=== PATIENT | female | born 1980 | race Caucasian/White ===

== ENCOUNTER 2017-05-16 09:14 | Emergency (ER) | payer OTHER ==
[~2017-05-16] VITALS: Ht 160 cm; Wt 64.9 kg
[2017-05-16] MEDS ORDERED: 0.9 % SODIUM CHLORIDE 10 ML DISP.SYRIN. IV PRN (09:30)
[2017-05-16 09:43] LABS: BASO # 0.1 x10^3/uL (0.0-0.2); BASO % 1 % (0-3); EOS # 0.1 x10^3/uL (0.0-0.7); EOS % 2 % (0-3); HEMOGLOBIN 12.3 g/dL (12.0-15.5); LYMPH # 2.8 x10^3/uL (1.0-4.8); LYMPH % 41 % (24-48); MEAN CORPUSCULAR HEMOGLOBIN 30 pg (25-35); MEAN CORPUSCULAR HGB CONC 34 g/dL (31-37); MEAN CORPUSCULAR VOLUME 88 fL (79-100); MONO # 0.4 x10^3/uL (0.0-1.1); MONO % 6 % (0-9); NEUT # 3.3 x10^3uL (1.8-7.7); NEUT % 50 % (31-73); PLATELET COUNT 265 x10^3/uL (140-400); RED BLOOD COUNT 4.08 x10^6/uL (3.50-5.40); RED CELL DISTRIBUTION WIDTH 16.7 % (11.5-14.5); WHITE BLOOD COUNT 6.7 x10^3/uL (4.0-11.0)
[2017-05-16] MEDS ORDERED: ASPIRIN 81 MG TAB.CHEW PO ONE (10:00)
[2017-05-16] MEDS ORDERED: CONTRAST GIVEN MC PRN (10:00)
[2017-05-16] MEDS ORDERED: IOHEXOL 300 MG/ML 75 ML VIAL. IV ONE (10:00)
[2017-05-16 10:03] LABS: ALBUMIN 3.7 g/dL (3.4-5.0); ALBUMIN/GLOBULIN RATIO 0.9 (1.0-1.7); ALK PHOS 82 U/L (46-116); ALT (SGPT) 24 U/L (14-59); ANION GAP 9 (6-14); AST (SGOT) 21 U/L (15-37); BLOOD UREA NITROGEN 12 mg/dL (7-20); BUN/CREATININE RATIO 13 (6-20); CALCIUM 8.8 mg/dL (8.5-10.1); CARBON DIOXIDE 27 mmol/L (21-32); CHLORIDE 104 mmol/L (98-107); CREATINE KINASE 37 U/L (26-192); CREATININE 0.9 mg/dL (0.6-1.0); GFR 70.1; GLUCOSE 107 mg/dL (70-99); MAGNESIUM 1.7 mg/dL (1.8-2.4); POTASSIUM 3.5 mmol/L (3.5-5.1); SODIUM 140 mmol/L (136-145); TOTAL BILIRUBIN 0.6 mg/dL (0.2-1.0); TOTAL PROTEIN 7.8 g/dL (6.4-8.2)
[2017-05-16] MEDS ORDERED: ONDANSETRON PF 4 MG/2 ML VIAL. IV ONE (10:15)
--- NOTE | 2017-05-16 10:37 | RAD ---
Indication: Short of air for 2 days. Technique: Axial images and coronal and sagittal reformatted images are provided. Coronal maximum intensity projection reformatted images are provided. 75 mL of intravenous Omnipaque 300 was administered without complication. No comparison is available. One or more of the following individualized dose reduction techniques were utilized for this examination: 1. Automated exposure control 2. Adjustment of the mA and/or kV according to patient size 3. Use of iterative reconstruction technique Findings: The contrast bolus is satisfactory. There is no filling defect to suggest a pulmonary embolism. 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 Heart is not enlarged. There is no hilar or mediastinal adenopathy. There is thyromegaly. Central airways are patent. There is no pleural effusion. There is dependent atelectasis. There is no consolidation. There is no worrisome pulmonary nodule. There is minimal emphysema. Postsurgical changes are noted in the stomach. There are minimal degenerative changes in the spine. Impression: 1. Negative for pulmonary embolism. 2. No acute thoracic findings.
[2017-05-16 11:16] LABS: INFLUENZA A PATIENT NEGATIVE (NEGATIVE); INFLUENZA B PATIENT NEGATIVE (NEGATIVE)
[2017-05-16] MEDS ORDERED: HYDR-971 PO (11:27)
[2017-05-16] MEDS ORDERED: METH4TAB2 PO (11:27)
--- NOTE | 2017-05-16 11:27 | PHYS DOC ---
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 Patient state she was on Lovenox during hospitalization but did not have any more anticoagulation after her discharge from hospital. Patient complaining of intermittent episodes of shortness of breath for the last 3 days with mild activity that getting worse today. Patient complaining of nausea and palpitation and dizziness and near syncope with episodes of shortness of breath. Patient complaining of episodes of right sided chest pain since yesterday as a sharp pain with radiation to her right shoulder which shortness of breath and nausea and dizziness and palpitation that last for a few seconds to minutes and getting more constant today. Patient denies recent immobilization or lower extremity pain. States she had temperature of 100 yesterday and denies cough and congestion and sore throat and urinary symptom. Review of Systems Review of Systems Constitutional: Force fever and chills Eyes: Denies change in visual acuity, redness, or eye pain [] HENT: Denies nasal congestion or sore throat [] Respiratory: Force cough and shortness of breath] Cardiovascular: No additional information not addressed in HPI [] GI: Denies abdominal pain,vomiting, bloody stools or diarrhea and reports nausea [] : Denies dysuria or hematuria [] Musculoskeletal: Denies back pain or joint pain [] Integument: Denies rash or skin lesions [] Neurologic: Denies headache, focal weakness or sensory changes [] Endocrine: Denies polyuria or polydipsia [] All other systems were reviewed and found to be within normal limits, except as documented in this note. Current Medications Current Medications Current Medications Medications (Trade) Dose Ordered Sig/Ronni Start Time Stop Time Status Last Admin Dose Admin Aspirin (Children'S Aspirin) 324 mg 1X ONCE 05/16/17 10:00 05/16/17 10:01 DC 05/16/17 10:00 324 MG Fentanyl Citrate (Fentanyl 2ml Vial) 50 mcg 1X ONCE 05/16/17 10:15 05/16/17 10:16 DC 05/16/17 10:15 50 MCG Info (Do NOT chart on this entry -- for MONITORING) 1 each PRN DAILY PRN 05/16/17 10:00 05/18/17 09:59 Iohexol (Omnipaque 300 Mg/ml) 75 ml 1X ONCE 05/16/17 10:00 05/16/17 10:01 DC 05/16/17 09:57 75 ML Ondansetron HCl (Zofran) 4 mg 1X ONCE 05/16/17 10:15 05/16/17 10:16 DC 05/16/17 10:15 4 MG Sodium Chloride (Normal Saline Flush) 10 ml QSHIFT PRN 05/16/17 09:30 Allergies Allergies Allergies Coded Allergies Type Severity Reaction Last Updated Verified No Known Drug Allergies 05/16/17 No Physical Exam Physical Exam Constitutional: Well developed, well nourished, mild distress, non-toxic appearance, anxious. [] HENT: Normocephalic, atraumatic, bilateral external ears normal, oropharynx moist, no oral exudates, nose normal. [] Eyes: PERRLA, EOMI, conjunctiva normal, no discharge. [] Neck: Normal range of motion, no tenderness, supple, no stridor. [] Cardiovascular: Tachycardia, no murmur [] Lungs & Thorax: Bilateral breath sounds clear to auscultation, right anterior chest wall reproducible pain[] Abdomen: Bowel sounds normal, soft, no tenderness, no masses, no pulsatile masses. [] Skin: Warm, dry, no erythema, no rash. [] Back: No tenderness, no CVA tenderness. [] Extremities: No tenderness, no cyanosis, no clubbing, ROM intact, no edema. [] Neurologic: Alert and oriented X 3, normal motor function, normal sensory function, no focal deficits noted. [] Psychologic: Affect normal, judgement normal, mood normal. [] Current Patient Data Vital Signs Vital Signs Date Time Temp Pulse Resp B/P (MAP) Pulse Ox O2 Delivery O2 Flow Rate FiO2 05/16/17 10:15 16 100 05/16/17 10:00 76 133/91 (105) Room Air 05/16/17 09:20 98.7 Lab Results Laboratory Tests Test 05/16/17 09:24 05/16/17 09:38 Influenza Type A (Rapid) Negative (NEGATIVE) Influenza Type B (Rapid) Negative (NEGATIVE) White Blood Count 6.7 x10^3/uL (4.0-11.0) Red Blood Count 4.08 x10^6/uL (3.50-5.40) Hemoglobin 12.3 g/dL (12.0-15.5) Hematocrit 36.0 % (36.0-47.0) Mean Corpuscular Volume 88 fL (79-100) Mean Corpuscular Hemoglobin 30 pg (25-35) Mean Corpuscular Hemoglobin Concent 34 g/dL (31-37) Red Cell Distribution Width 16.7 % (11.5-14.5) H Platelet Count 265 x10^3/uL (140-400) Neutrophils (%) (Auto) 50 % (31-73) Lymphocytes (%) (Auto) 41 % (24-48) Monocytes (%) (Auto) 6 % (0-9) Eosinophils (%) (Auto) 2 % (0-3) Basophils (%) (Auto) 1 % (0-3) Neutrophils # (Auto) 3.3 x10^3uL (1.8-7.7) Lymphocytes # (Auto) 2.8 x10^3/uL (1.0-4.8) Monocytes # (Auto) 0.4 x10^3/uL (0.0-1.1) Eosinophils # (Auto) 0.1 x10^3/uL (0.0-0.7) Basophils # (Auto) 0.1 x10^3/uL (0.0-0.2) Prothrombin Time 11.1 SEC (9.4-11.4) Prothrombin Time INR 1.1 (0.9-1.1) PTT 25 SEC (23-33) Sodium Level 140 mmol/L (136-145) Potassium Level 3.5 mmol/L (3.5-5.1) Chloride Level 104 mmol/L (98-107) Carbon Dioxide Level 27 mmol/L (21-32) Anion Gap 9 (6-14) Blood Urea Nitrogen 12 mg/dL (7-20) Creatinine 0.9 mg/dL (0.6-1.0) Estimated GFR (Cockcroft-Gault) 70.1 BUN/Creatinine Ratio 13 (6-20) Glucose Level 107 mg/dL (70-99) H Calcium Level 8.8 mg/dL (8.5-10.1) Magnesium Level 1.7 mg/dL (1.8-2.4) L Total Bilirubin 0.6 mg/dL (0.2-1.0) Aspartate Amino Transferase (AST) 21 U/L (15-37) Alanine Aminotransferase (ALT) 24 U/L (14-59) Alkaline Phosphatase 82 U/L (46-116) Creatine Kinase 37 U/L (26-192) Creatine Kinase MB (Mass) < 0.5 ng/mL (0.0-3.6) Creatine Kinase MB Relative Index 1.4 % (0-4) Troponin I Quantitative < 0.017 ng/mL (0-0.055) CK-Dco-N-Type Natriuretic Peptide 19 pg/mL (0-124) Total Protein 7.8 g/dL (6.4-8.2) Albumin 3.7 g/dL (3.4-5.0) Albumin/Globulin Ratio 0.9 (1.0-1.7) L EKG EKG [EKG interpreted by me. EKG at 0 923 showed normal sinus rhythm at rate of 94, no acute ST and T wave abnormality, poor R-wave progress in inferior leads Radiology/Procedures Radiology/Procedures [] Course & Med Decision Making Course & Med Decision Making Pertinent Labs and Imaging studies reviewed. (See chart for details) Evaluation of patient in ER showed 37-year-old female patient with history of pulmonary embolism presented to ER with complaining of shortness of breath and chest pain for the last 2 days. Patient was anxious and had tachycardia at arrival to ER with normal O2 sat. EKG, labs, CT chest for PE was unremarkable and flu test was negative. Patient treated with IV fluid and fentanyl and felt better. Plan discharge patient home with diagnosis of pleurisy and anxiety. Dragon Disclaimer Dragon Disclaimer This electronic medical record was generated, in whole or in part, using a voice recognition dictation system. Departure Departure: Impression: Primary Impression: Pleurisy Additional Impressions: Dyspnea Right-sided chest pain Anxiety Disposition: HOME, SELF-CARE (At 1124) Condition: IMPROVED Referrals: JER HEATH MD (PCP) Patient Instructions: Pleurisy Additional Instructions: Follow-up with your primary care physician in 3-5 days Return to ER if not getting better Scripts Methylprednisolone (MEDROL) 4 Mg Tab.ds.pk 1 PKG PO UD, #1 PKG Prov: NEERAJ HUNTER MD 05/16/17 Hydrocodone Bit/Acetaminophen (NORCO 5-325 TABLET) 1 Each Tablet 1 TAB PO PRN Q6HRS Y for PAIN, #10 TAB 0 Refills Prov: NEERAJ HUNTER MD 05/16/17 Critical Care Time Critical care time was [80] minutes exclusive of procedures. Problem Qualifiers NEERAJ HUNTER MD May 16, 2017 11:27
[2017-05-16 11:30] VITALS: BP 107/93
--- NOTE | 2017-05-16 17:54 | EKG ---
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
== END 2017-05-16 11:35 | disposition home or self-care (01) ==
LOC: ER 09:14
DX: R09.1 Pleurisy (principal); F41.9 Anxiety disorder, unspecified; Z86.718 Personal history of other venous thrombosis and embolism; Z86.711 Personal history of pulmonary embolism; Q79.6 Ehlers-Danlos syndromes
CPT/HCPCS: 36415; 71275; 80053; 82553; 83735; 83880; 84484; 85025; 85610; 85730; 87804; 93005; 96374; 96375; 99291; 99292; J2405; J3010; Q9967

== ENCOUNTER → 2017-06-17 | Outpatient (CLI) | payer OTHER ==
[~2017-06-17] MED LIST: BUPIVACAINE MPF 0.25% 10 ML VIAL. ONE; HYDR-971 PO; LIDOCAINE 1% PF 30 ML VIAL. ONE; METH4TAB2 PO
== END | disposition home or self-care (01) ==
LOC: SURG 09:06
PROVIDERS: ATTEND Anesthesiology Pain Medicine
DX: M79.1 Myalgia (principal); M19.90 Unspecified osteoarthritis, unspecified site; D64.89 Other specified anemias; G43.909 Migraine, unspecified, not intractable, without status migrainosus; F41.8 Other specified anxiety disorders; Z86.718 Personal history of other venous thrombosis and embolism; Z86.711 Personal history of pulmonary embolism; Z98.84 Bariatric surgery status
CPT/HCPCS: 20553; 99213; J2001; J3490

== ENCOUNTER → 2017-07-14 | Outpatient (CLI) | payer OTHER | END | disposition home or self-care (01) | LOC: SURG 10:51 | PROVIDERS: ATTEND Anesthesiology Pain Medicine | DX: M79.1 Myalgia (principal) | CPT/HCPCS: 20553; J2001; J3490 ==

== ENCOUNTER → 2018-01-18 | Outpatient (CLI) | payer OTHER ==
[~2018-01-18] MED LIST changes: -BUPIVACAINE MPF 0.25% 10 ML VIAL. ONE; -LIDOCAINE 1% PF 30 ML VIAL. ONE
[2018-01-18 14:43] LABS: BARBITURATES NEG (NEG); BENZODIAZEPINES NEG (NEG); CANNABINOIDS NEG (NEG); COCAINE NEG (NEG); METHADONE NEG (NEG); OPIATES NEG (NEG); PHENCYCLIDINE NEG (NEG)
[2018-01-18 14:46] LABS: AMPHETAMINE/METHAMPHETAMINE NEG (NEG)
== END | disposition home or self-care (01) ==
LOC: SURG 14:04
PROVIDERS: ATTEND Anesthesiology
DX: M54.5 Low back pain (principal); G89.29 Other chronic pain; Z98.890 Other specified postprocedural states
CPT/HCPCS: 36415; 80307; 99213; G0479

== ENCOUNTER 2018-12-26 14:29 | Emergency (ER) | payer OTHER ==
[~2018-12-26] VITALS: Ht 160 cm; Wt 62.6 kg
[~2018-12-26 14:29] MED LIST changes: +HYDR-3165 PO; -HYDR-971 PO
--- NOTE | 2018-12-26 14:50 | PHYS DOC ---
Past History Past Medical History: DVT, Other Additional Past Medical Histor: pulmonary embolism Past Surgical History: Appendectomy, Cholecystectomy, Gastric Bypass Alcohol Use: None Drug Use: None Adult General Chief Complaint Chief Complaint: CHEST PAIN HPI HPI Patient is a 38 yo f hx kevon newman, pulmonary embolism back in 2011 that was apparently unprovoked according to her report also Alessio's thyroiditis who is brought in by emesis with chief complaint of chest pain and shortness of breath since last night. Eating slowly worse left side sharp worse with deep breathing radiates occasionally down the right arm associated with significant shortness of breath that "comes and goes at random". She says it feels identical to when she had a pulmonary embolism about 7 years ago. The pain does not radiate to the back it is not ripping or tearing Review of Systems Review of Systems Constitutional: Denies fever or chills [] Eyes: Denies change in visual acuity, redness, or eye pain [] HENT: Denies nasal congestion or sore throat [] Respirator Musculoskeletal: Denies back pain or joint pain [] Integument: Denies rash or skin lesions [] Neurologic: Denies headache, focal weakness or sensory changes [] Endocrine: Denies polyuria or polydipsia [] All other systems were reviewed and found to be within normal limits, except as documented in this note. Allergies Allergies Allergies Coded Allergies Type Severity Reaction Last Updated Verified No Known Drug Allergies 05/16/17 No Physical Exam Physical Exam Constitutional: Well developed, well nourished, no acute distress, non-toxic appearance. [] HENT: Normocephalic, atraumatic, bilateral external ears normal, oropharynx moist, no oral exudates, nose normal. [] Eyes: PERRLA, EOMI, conjunctiva normal, no discharge. [] Neck: Normal range of motion, no tenderness, supple, no stridor. [] Cardiovascular:Heart rate regular rhythm, no murmur [] Lungs & Thorax: Bilateral breath sounds clear to auscultation [] Abdomen: Bowel sounds normal, soft, no tenderness, no masses, no pulsatile masses. [] Skin: Warm, dry, no erythema, no rash. [] Back: No tenderness, no CVA tenderness. [] Extremities: No tenderness, no cyanosis, no clubbing, ROM intact, no edema. [] Neurologic: Alert and oriented X 3, normal motor function, normal sensory function, no focal deficits noted. [] Psychologic: Affect normal, judgement normal, mood normal. [] EKG EKG []Normal sinus rhythm rate of 99 there are very subtle ST segment depression less than 1 mm in the inferior leads no STEMI interpreted by me time of encounter LOOKS SAME 05/16/17 Radiology/Procedures Radiology/Procedures [] Impressions: IMPRESSION: 1. No pulmonary embolus identified within the main, lobar or segmental pulmonary arteries. 2. A 3 mm nodule in the right upper lobe series 5 image 26. In a low-risk patient no further follow-up imaging is recommended. In a high-risk patient and optional one-year follow-up CT can BE performed. Exposure: One or more of the following in the visualized dose reduction techniques were utilized for this examination: 1. Automated exposure control 2. Adjustment of the MA and/or KV according to patient size 3. Use of iterative of reconstructive technique Electronically signed by: Grace Young MD (12/26/2018 4:28 PM) [facility] Course & Med Decision Making Course & Med Decision Making Pertinent Labs and Imaging studies reviewed. (See chart for details) CP SOB PE STUDY NEG TROP/EKG UNREMARKABLE. FELT BETTER IN ER AFTER FENTANYL ON RE-EXAM HAS BEEN COUGHING HAS A REACTIVE COUGH ON EXAM TRY ALBUTEROL PT FEELS BETTER AND IS REASSURED. NOTED NODULE, ADVISED SMOKING CESSATION FOLLOW UP ONE YEAR TRIAGE NOTE BELOW [] History of Present Illness * Pt came into the ER by EMS. EMS stated we got called for SOB. EMS stated the pt dose have an increaded rate of breathing. EMS stated the pt is stable. PT stated I have had a history of PE in 2011 and how I am digna feels like that now. Pt stated I am very SOB and my left chest feels funny. Pt stated I have a lot of discomfort in my chest more so upper left chest. Distress * Mild Temperature (Fahrenheit): * 98.3 degrees F (97.6-99.5) Patient Temperature * 98.3 degrees F (97.5-99.5) Temperature Source * Oral Blood Pressure Systolic * 100 mm Hg (100-140) Blood Pressure Diastolic * 58 mm Hg (60-100) L Blood Pressure Mean * 72 mm Hg Blood Pressure Location * Left Arm Blood Pressure Source * Automatic Cuff Pulse Rate * 100 beats per minute (60-90) H Pulse Assessment Method * NIBP Respiratory Rate * 20 breaths per minute (12-24) Oxygen Delivery Method * Room Air Bedside Pulse Oximetry * 100 % Treatment Prior to Arrival * Yes - EMS Complaint of Pain * Yes Pain Scale Type Dragon Disclaimer Dragon Disclaimer This electronic medical record was generated, in whole or in part, using a voice recognition dictation system. Departure Departure: Impression: Primary Impression: Bronchitis Disposition: 01 HOME, SELF-CARE Condition: STABLE Referrals: JER HEATH MD (PCP) Scripts Albuterol Sulfate (PROAIR HFA INHALER) 8.5 Gm Hfa.aer.ad 1 PUFF INH PRN Q6HRS PRN for SHORTNESS OF BREATH, #1 INHALER 0 Refills Prov: MARIAN MATOS MD 12/26/18 MARIAN MATOS MD Dec 26, 2018 14:49
[2018-12-26 15:03] LABS: BASO # 0.1 x10^3/uL (0.0-0.2); BASO % 1 % (0-3); EOS # 0.1 x10^3/uL (0.0-0.7); EOS % 2 % (0-3); HEMATOCRIT 40.2 % (36.0-47.0); HEMOGLOBIN 13.7 g/dL (12.0-15.5); LYMPH # 2.9 x10^3/uL (1.0-4.8); LYMPH % 31 % (24-48); MEAN CORPUSCULAR HEMOGLOBIN 32 pg (25-35); MEAN CORPUSCULAR HGB CONC 34 g/dL (31-37); MEAN CORPUSCULAR VOLUME 94 fL (79-100); MONO # 0.7 x10^3/uL (0.0-1.1); MONO % 7 % (0-9); NEUT # 5.4 x10^3uL (1.8-7.7); NEUT % 59 % (31-73); PLATELET COUNT 260 x10^3/uL (140-400); RED BLOOD COUNT 4.26 x10^6/uL (3.50-5.40); RED CELL DISTRIBUTION WIDTH 14.5 % (11.5-14.5); WHITE BLOOD COUNT 9.3 x10^3/uL (4.0-11.0)
--- NOTE | 2018-12-26 15:20 | RAD ---
CHEST AP ONLY History: Chest pain Comparison: CT May 16, 2017. Findings: No consolidation or pleural effusion. Normal heart size. Impression: 1. No acute cardiopulmonary process. Electronically signed by: Rodrigo Suh DO (12/26/2018 3:17 PM) [facility]
[2018-12-26 15:23] LABS: ALBUMIN 4.2 g/dL (3.4-5.0); ALBUMIN/GLOBULIN RATIO 1.2 (1.0-1.7); GFR 61.7; POTASSIUM 3.5 mmol/L (3.5-5.1); TOTAL BILIRUBIN 0.3 mg/dL (0.2-1.0); TOTAL PROTEIN 7.8 g/dL (6.4-8.2)
--- NOTE | 2018-12-26 15:40 | EKG ---
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
[2018-12-26] MEDS ORDERED: IOHEXOL 350 MG/ML 100 ML VIAL. IV ONE (16:00)
--- NOTE | 2018-12-26 16:30 | RAD ---
Exam: CT of chest with contrast INDICATION: Shortness of breath, chest pain TECHNIQUE: Sequential axial images through the chest obtained following the administration of 90 mL of Omni 350 IV contrast. Sagittal and coronal reformatted images were reconstructed from the axial data and reviewed. Comparisons: May 16, 2017 FINDINGS: Thyroid is diffusely enlarged. No enlarged mediastinal lymph nodes. Heart size is normal. No pericardial effusion. Thoracic aorta has a normal course and caliber. 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 Pulmonary artery is not enlarged. No pulmonary embolus identified within the main, lobar or segmental pulmonary arteries. Airways are patent. No consolidation or pneumothorax. Strandy opacities at the dependent portion of the lungs likely representing atelectasis. 3 mm nodule in the right upper lobe series 5 image 26. No pleural effusion or thickening. Visualized upper abdomen is unremarkable. No suspicious osseous lesion or acute fracture. IMPRESSION: 1. No pulmonary embolus identified within the main, lobar or segmental pulmonary arteries. 2. A 3 mm nodule in the right upper lobe series 5 image 26. In a low-risk patient no further follow-up imaging is recommended. In a high-risk patient and optional one-year follow-up CT can BE performed. Exposure: One or more of the following in the visualized dose reduction techniques were utilized for this examination: 1. Automated exposure control 2. Adjustment of the MA and/or KV according to patient size 3. Use of iterative of reconstructive technique Electronically signed by: Grace Young MD (12/26/2018 4:28 PM) [facility]
[2018-12-26 16:49] VITALS: BP 102/49
[2018-12-26] MEDS ORDERED: ALBU2.5V8 INH (16:57)
== END 2018-12-26 17:00 | disposition home or self-care (01) ==
LOC: ER 14:29
DX: J40 Bronchitis, not specified as acute or chronic (principal); Z86.718 Personal history of other venous thrombosis and embolism; Z86.711 Personal history of pulmonary embolism; Z90.89 Acquired absence of other organs; Z90.49 Acquired absence of other specified parts of digestive tract; Z98.84 Bariatric surgery status
CPT/HCPCS: 36415; 71045; 71275; 80053; 83880; 84484; 85025; 93005; 96374; 99285; J3010; Q9967

== ENCOUNTER → 2019-08-18 | Outpatient (CLI) | payer OTHER ==
[~2019-08-18] MED LIST changes: +ALBU2.5V8 INH
--- NOTE | 2019-08-18 16:14 | RAD ---
INDICATION: Back pain COMPARISON: None. IMPRESSION: Lumbar spine: 3 views obtained. Air-filled prominent loops of bowel are seen at the partially visualized abdomen measuring up to about 38 millimeters. Would correlate with symptoms to ensure there is not a pathologic cause such as ileus or obstruction. Degenerative changes of the lumbar spine with postoperative changes status post pedicle screw and dada placement at L4-5. Anterolisthesis of L4 on 5. Mild retrolisthesis of L3 on 4. Electronically signed by: Yuri Mccall MD (08/18/2019 4:11 PM) [id number]
== END | disposition home or self-care (01) ==
LOC: DXRAD 15:40
PROVIDERS: ATTEND Family Medicine
DX: M43.16 Spondylolisthesis, lumbar region (principal); M53.86 Other specified dorsopathies, lumbar region; M47.816 Spondylosis without myelopathy or radiculopathy, lumbar region; Z98.1 Arthrodesis status
CPT/HCPCS: 72100

== ENCOUNTER 2021-04-02 14:45 | Emergency (ER) | payer OTHER | END 2021-04-02 15:30 | disposition left against medical advice (07) | LOC: ER 14:45 | DX: R06.02 Shortness of breath (principal); R11.2 Nausea with vomiting, unspecified; R51.9 Headache, unspecified; M79.10 Myalgia, unspecified site; Z53.21 Procedure and treatment not carried out due to patient leaving prior to being seen by health care provider ==

== ENCOUNTER 2021-04-17 12:29 | Emergency (ER) | payer OTHER ==
[~2021-04-17] VITALS: Ht 160 cm; Wt 62.6 kg
[2021-04-17] MEDS ORDERED: IV NORMAL SALINE 1,000ML 1,000 ML IV ONE (12:45)
[2021-04-17] MEDS ORDERED: IOHEXOL 350 MG/ML 100 ML VIAL. IV ONE (13:00)
--- NOTE | 2021-04-17 13:10 | PHYS DOC ---
Past History Past Medical History: DVT, Other Additional Past Medical Histor: pulmonary embolism Past Surgical History: Appendectomy, Cholecystectomy, Gastric Bypass Alcohol Use: None Drug Use: None Adult General Chief Complaint Chief Complaint: CHEST PAIN HPI HPI Patient is a 41-year-old female presenting via POV for right-sided chest pain. Reports onset was approximately 2 hours prior to arrival without any known inciting event, trauma, ingestion or exposure. Nothing known makes better, leaning forward makes worse. Pain is described and is right-sided under her right bra line and is sharp with occasional radiation to back. Timing of symptoms has been constant since onset and reported as severe. Patient associated symptoms include confusion, lightheadedness, diaphoresis, palpitations, shortness of breath and abdominal pain. States she is otherwise been at baseline health. States only recent medication change was an anticonstipation medication prescribed by her pain management doctor given her opioid dependence for chronic back pain. 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 She is here with who admits patient has had fluctuating confusion without obvious trauma/falls/ingestion where patient does not make sense. Recent history of this with reported chest pain prompted him to bring patient in for evaluation Review of Systems Review of Systems Fourteen body systems of review of systems have been reviewed. See HPI for pertinent positives and negative responses, other merchant all other systems are negative, non-pertinent or non-contributory Current Medications Current Medications Current Medications Medications (Trade) Dose Ordered Sig/Ronni Start Time Stop Time Status Last Admin Dose Admin Iohexol (Omnipaque 350 Mg/ml) 100 ml 1X ONCE 04/17/21 13:00 04/17/21 13:07 MO Allergies Allergies Allergies Coded Allergies Type Severity Reaction Last Updated Verified No Known Drug Allergies 05/16/17 No Physical Exam Physical Exam Constitutional: Toxic appearing, pale, cool and clammy on arrival with increased work of breathing HEENT: Head: Normocephalic and atraumatic. TMs clear, no hemotympanum Conjunctivae and EOM are normal. Pupils are equal, round, and reactive to light. Oropharynx is clear and dry with cracking lips and tongue No hematomas or lacerations or abrasions to face or scalp OP clear, no blood, no malocclusion, dentition intact Nares clear, no nasal septal hematoma Midface stable Neck: C-spine midline nontender, no step-offs. No meningeal signs or nuchal rigidity Cardiovascular: Tachycardic rate, regular rhythm and normal heart sounds. Pulmonary/Chest: Acute respiratory distress, increased work of breathing, tachypneic with mild cyanosis around lips, 54% on room air on arrival Abdominal: Soft and protuberant. Bowel sounds are normal. Pt exhibits no distension. There is no tenderness. Musculoskeletal: No bony tenderness to extremities, no deformities, full ROM extremities Chest wall stable Pelvis stable and non-tender No vertebral TTP and spine without stepoffs 1+ radial pulse of left versus 2+ radial pulse of right upper extremity Neurological: Pt is alert and oriented to person, place, and time. Moving all extremities willfully, able to wiggle all fingers and toes Alert and oriented x 3 Motor and sensory function fully intact Skin: Skin is cool and dry. No abrasions, no lacerations. Patient's back is mottled with lacy rash with palpable purpura Psychiatric: Anxious affect and mood Current Patient Data Vital Signs Vital Signs Date Time Temp Pulse Resp B/P (MAP) Pulse Ox O2 Delivery O2 Flow Rate FiO2 04/17/21 12:45 97.7 162 24 99/38 (58) 88 Room Air 04/17/21 12:46 2.0 Vital Signs Date Time Temp Pulse Resp B/P (MAP) Pulse Ox O2 Delivery O2 Flow Rate FiO2 04/17/21 16:47 144 24 115/67 (83) 97 Nasal Cannula 5.0 04/17/21 12:45 97.7 Lab Results Laboratory Tests Test 04/17/21 12:55 04/17/21 13:39 04/17/21 15:47 04/17/21 15:58 White Blood Count 16.3 x10^3/uL Red Blood Count 4.16 x10^6/uL Hemoglobin 13.8 g/dL Hematocrit 43.4 % Mean Corpuscular Volume 104 fL Mean Corpuscular Hemoglobin 33 pg Mean Corpuscular Hemoglobin Concent 32 g/dL Red Cell Distribution Width 14.1 % Platelet Count 355 x10^3/uL Neutrophils (%) (Auto) 82 % Lymphocytes (%) (Auto) 10 % Monocytes (%) (Auto) 8 % Eosinophils (%) (Auto) 0 % Basophils (%) (Auto) 0 % Neutrophils # (Auto) 13.3 x10^3uL Lymphocytes # (Auto) 1.6 x10^3/uL Monocytes # (Auto) 1.3 x10^3/uL Eosinophils # (Auto) 0.0 x10^3/uL Basophils # (Auto) 0.1 x10^3/uL Segmented Neutrophils % 77 % Band Neutrophils % 2 % Lymphocytes % 13 % Monocytes % 8 % Platelet Estimate Adequate Prothrombin Time 17.9 SEC Prothromb Time International Ratio 1.7 Activated Partial Thromboplast Time 34 SEC Sodium Level 137 mmol/L Potassium Level 3.6 mmol/L Chloride Level 98 mmol/L Carbon Dioxide Level 24 mmol/L Anion Gap 15 Blood Urea Nitrogen 9 mg/dL Creatinine 1.5 mg/dL Estimated GFR (Cockcroft-Gault) 38.1 BUN/Creatinine Ratio 6 Glucose Level 70 mg/dL Lactic Acid Level 7.4 mmol/L 4.1 mmol/L Calcium Level 8.0 mg/dL Magnesium Level 1.8 mg/dL Total Bilirubin 1.7 mg/dL Aspartate Amino Transf (AST/SGOT) 492 U/L Alanine Aminotransferase (ALT/SGPT) 201 U/L Alkaline Phosphatase 237 U/L Troponin I High Sensitivity 12 ng/L 21 ng/L [id number] Natriuretic Peptide 233 pg/mL Total Protein 6.3 g/dL Albumin 1.8 g/dL Albumin/Globulin Ratio 0.4 Lipase < 10 U/L SARS-CoV-2 Antigen (Rapid) Negative Current Medications Medications (Trade) Dose Ordered Sig/Ronni Route PRN Reason Start Time Stop Time Status Last Admin Dose Admin Iohexol (Omnipaque 350 Mg/ml) 100 ml 1X ONCE IV 04/17/21 13:00 04/17/21 13:07 DC 04/17/21 13:16 Sodium Chloride 500 ml @ 0 mls/hr 1X ONCE IV 04/17/21 14:00 04/17/21 14:01 DC 04/17/21 13:56 Sodium Chloride 1,000 ml @ 1,000 mls/hr 1X ONCE IV 04/17/21 12:45 04/17/21 14:06 DC 04/17/21 12:57 Doxycycline Hyclate 100 mg/ Dextrose 100 ml @ 50 mls/hr 1X ONCE IV 04/17/21 15:00 04/17/21 16:59 DC 04/17/21 15:33 Ceftriaxone Sodium 1 gm/ Sodium Chloride 50 ml @ 100 mls/hr 1X ONCE IV 04/17/21 15:00 04/17/21 15:29 DC 04/17/21 15:33 Dextrose 100 ml @ As Directed STK-MED ONCE IV 04/17/21 15:25 04/17/21 15:25 DC Sodium Chloride 50 ml @ As Directed STK-MED ONCE .ROUTE 04/17/21 15:25 04/17/21 15:25 DC Doxycycline Hyclate (Doxycycline Hyclate) 100 mg STK-MED ONCE IV 04/17/21 15:25 04/17/21 15:26 DC Ceftriaxone Sodium (Rocephin) 1 gm STK-MED ONCE .ROUTE 04/17/21 15:25 04/17/21 15:26 DC Lactated Ringer's 1,000 ml @ 150 mls/hr 1X ONCE IV 04/17/21 15:45 04/17/21 22:24 04/17/21 15:43 EKG EKG Initial EKG ordered and interpreted by myself at 1253 hrs. as SVT at 158 bpm, unremarkable intervals, no axis deviation, extensive artifact due to motion degradation from patient but no obvious STEMI Repeat EKG ordered and interpreted by myself at 1400 hrs. as sinus tachycardia at 136 bpm, unremarkable intervals except QTC 509, no axis deviation, no obvious ischemic findings, no STEMI Radiology/Procedures Radiology/Procedures EXAM: Chest, single view. HISTORY: Shortness of breath. Chest pain. COMPARISON: 12/26/2018 FINDINGS: A frontal view of the chest is obtained. There is right perihilar and bilateral infrahilar interstitial infiltrate. There is a small right and trace left pleural effusion. There is mild elevation of the right hemidiaphragm. The heart is normal in size. There is no pneumothorax. IMPRESSION: Right perihilar and bilateral infrahilar interstitial infiltrate with small right and trace left pleural effusions. Electronically signed by: Valerie Gonzales MD (04/17/2021 1:33 PM) [id number] ////////////////////////// CTA CHEST_ABDOMEN_AND PELVIS INDICATION: shob Comparison: CT 12/26/2018. TECHNIQUE: Following the uneventful administration of a bolus of [address] sections were obtained through the chest, abdomen, and pelvis. MIP images and multiplanar reconstructions were also obtained. PQRS compliance statement: One or more of the following individualized dose reduction techniques were utilized for this examination: 1. Automated exposure control 2. Adjustment of the mA and/or kV according to patient size 3. Use of iterative reconstruction technique FINDINGS: Right upper lobe groundglass opacities. Middle lobe, lingula, and bilateral lower lobe consolidations with volume loss. No abnormality of the central airways. Small right pleural effusion. The visualized thyroid is normal in size and attenuation. No axillary or supraclavicular lymphadenopathy. No mediastinal, hilar or retrocrural lymphadenopathy. The heart and pericardium are within normal limits. No evidence of pulmonary thrombolic disease. No aortic dissection or aneurysm. Aberrant origin of the right subclavian artery. Marked hepatic steatosis. Cholecystectomy. Atrophic pancreas. The spleen and bilateral adrenal glands are normal. Symmetric renal enhancement. There is no focal renal mass. There is no hydronephrosis. Postsurgical changes of Claudio-en-Y gastric bypass. Multiple distended fluid- filled loops of small bowel. Fluid and gas distends most of the colon. High density material presumed to be enteric contrast reaches the colon. Appendectomy There is no free fluid. There is no mesenteric or retroperitoneal adenopathy. 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 Right hepatic artery arises from the SMA. Urinary bladder is normal. Hysterectomy. No pelvic free fluid. There is no pelvic or inguinal adenopathy. Degenerative changes of the spine. Grade 1 anterolisthesis at L4-5. Posterior instrumentation at L4-5.. IMPRESSION: 1. No evidence of pulmonary thromboembolic disease. No aortic dissection or aneurysm. 2. Groundglass opacities in the right upper lobe with mid and lower lung consolidations and volume loss, likely infection and some areas of atelectasis. 3. Distention of large and small bowel with fluid and gas, probably adynamic ileus or nonspecific enteritis. 4. 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 While this is often an incidental/asymptomatic finding, it can be seen in the setting of median arcuate ligament syndrome and clinical correlation is advised. Electronically signed by: Major Barcenas MD (04/17/2021 2:19 PM) [id number] Heart Score C/O Chest Pain: Yes HEART Score for Chest Pain: HEART Score for Chest Pain Response (Comments) Value History Highly Suspicious 2 ECG Nonspecific Repolarizatio 1 Age < 45 0 Risk Factors 1 or 2 Risk Factors 1 Troponin < Normal Limit 0 Total 4 Risk Factors: Risk Factors: DM, Current or recent (<one month) smoker, HTN, HLP, family history of CAD, obesity. Risk Scores: Risk Factors: DM, Current or recent (<one month) smoker, HTN, HLP, family history of CAD, obesity. Course & Med Decision Making Course & Med Decision Making Airway patent, in acute respiratory distress, IV access and vitals obtained concerning for tachycardia, tachypnea, hypoxia, and hypotension X2 peripheral IVs obtained. Nasal cannula and subsequent nonrebreather mask applied with improvement in patient's O2 saturation to greater than 90%. Initial concern for aortic dissection given ripping tearing pain that was midline and discrepancy with radial pulses during palpation, once stabilized with IV fluid rehydration and improvement in O2 saturations, patient sent to CT scan that was ultimately unremarkable nonsurgical Patient brought back to ER trauma room for further evaluation and resuscitation. I reviewed findings with radiologist with concern for pneumonia and a fully vaccinated patient with no recent COVID-19 contact. IV antibiotics for community-acquired pneumonia started IV fluid rehydration, a total of 3 L IV normal saline administered with improvement in patient's hypotension and tachycardia, patient appears clinically hypovolemic/dehydrated Patient reports having generalized abdominal discomfort over past week. States that this is worsened with meals. Reports she has been having adequate passage of gas and bowel movements, question partial ileus versus reported median arcuate ligament syndrome I discussed patient's case with patient and significant other at bedside and need for hospital transfer. Efforts were made to transfer to [facility], [facility] but all were full due to current COVID-19 pandemic and capacity issues [facility] ultimately contacted and Dr. Levni, hospitalist, reviewed case, images and overall clinical picture with myself. I discussed transient improvement with IV fluid rehydration but recurrence of tachyarrhythmia, he recommended continued IV fluid resuscitation and hospital transfer I updated patient and significant other on all discussions above in addition to lab findings and need for hospitalization for which they were amenable, all questions and concerns addressed prior to ER transfer to [facility] for further inpatient medical management via EMS Critical Care Time This patient required critical care. Due to the fact that the patient required a significant amount of one on one physician - patient contact time, ordering and review of studies, arranging urgent treatment with development of a management plan, evaluation of patients response to treatment with frequent reassessments, and discussions with other providers this patient required 50 minutes of critical care time. Critical care time was indicated due to the inherent instability and/or potential for instability in this patient. The critical care time that is allocated to this patient is above and beyond any time spent on any other billable procedures performed on this patient. Dragon Disclaimer Dragon Disclaimer This electronic medical record was generated, in whole or in part, using a voice recognition dictation system. Departure Departure: Impression: Primary Impression: Sepsis due to pneumonia Additional Impressions: Tachycardia Hypovolemia Merrill-Danlos disease Ileus Metabolic encephalopathy Disposition: 02 [facility] ([facility] Admitting Physician: Other (dr levin) Condition: GUARDED Referrals: DILAN CAMP MD (PCP) Problem Qualifiers YONY CURRY DO Apr 17, 2021 13:10
[2021-04-17 13:28] LABS: BASO # 0.1 x10^3/uL (0.0-0.2); BASO % 0 % (0-3); EOS % 0 % (0-3); HEMATOCRIT 43.4 % (36.0-47.0); HEMOGLOBIN 13.8 g/dL (12.0-15.5); LYMPH # 1.6 x10^3/uL (1.0-4.8); LYMPH % 10 % (24-48); MEAN CORPUSCULAR HEMOGLOBIN 33 pg (25-35); MEAN CORPUSCULAR HGB CONC 32 g/dL (31-37); MEAN CORPUSCULAR VOLUME 104 fL (79-100); MONO # 1.3 x10^3/uL (0.0-1.1); MONO % 8 % (0-9); NEUT # 13.3 x10^3uL (1.8-7.7); NEUT % 82 % (31-73); PLATELET COUNT 355 x10^3/uL (140-400); RED BLOOD COUNT 4.16 x10^6/uL (3.50-5.40); RED CELL DISTRIBUTION WIDTH 14.1 % (11.5-14.5); WHITE BLOOD COUNT 16.3 x10^3/uL (4.0-11.0)
--- NOTE | 2021-04-17 13:36 | RAD ---
EXAM: Chest, single view. HISTORY: Shortness of breath. Chest pain. COMPARISON: 12/26/2018 FINDINGS: A frontal view of the chest is obtained. There is right perihilar and bilateral infrahilar interstitial infiltrate. There is a small right and trace left pleural effusion. There is mild elevat ion of the right hemidiaphragm. The heart is normal in size. There is no pneumothorax. IMPRESSION: Right perihilar and bilateral infrahilar interstitial infiltrate with small right and tr rita left pleural effusions. Electronically signed by: Valerie Gonzales MD (04/17/2021 1:33 PM) [id number]
[2021-04-17 13:40] LABS: ANION GAP 15 (6-14); BLOOD UREA NITROGEN 9 mg/dL (7-20); BUN/CREATININE RATIO 6 (6-20); CARBON DIOXIDE 24 mmol/L (21-32); CHLORIDE 98 mmol/L (98-107); CREATININE 1.5 mg/dL (0.6-1.0); GFR 38.1; GLUCOSE 70 mg/dL (70-99); POTASSIUM 3.6 mmol/L (3.5-5.1); SODIUM 137 mmol/L (136-145)
[2021-04-17 13:44] LABS: ALBUMIN 1.8 g/dL (3.4-5.0); ALBUMIN/GLOBULIN RATIO 0.4 (1.0-1.7); ALK PHOS 237 U/L (46-116); ALT (SGPT) 201 U/L (14-59); AST (SGOT) 492 U/L (15-37); MAGNESIUM 1.8 mg/dL (1.8-2.4); TOTAL BILIRUBIN 1.7 mg/dL (0.2-1.0); TOTAL PROTEIN 6.3 g/dL (6.4-8.2)
[2021-04-17 13:47] LABS: LIPASE < 10 U/L (73-393)
[2021-04-17] MEDS ORDERED: IV NORMAL SALINE 500ML 500 ML IV ONE (14:00)
--- NOTE | 2021-04-17 14:21 | RAD ---
CTA CHEST_ABDOMEN_AND PELVIS INDICATION: shob Comparison: CT 12/26/2018. TECHNIQUE: Following the uneventful administration of a bolus of 100 and intravenous contrast axial C T sections were obtained through the chest, abdomen, and pelvis. MIP images and multiplanar reconstru ctions were also obtained. PQRS compliance statement: One or more of the following individualized dose reduction techniques were utilized for this examinat ion: 1. Automated exposure control 2. Adjustment of the mA and/or kV according to patient size 3. Use of iterative reconstruction technique FINDINGS: Right upper lobe groundglass opacities. Middle lobe, lingula, and bilateral lower lobe consolidations with volume loss. No abnormality of the central airways. Small right pleural effusion. The visualized thyroid is normal in size and attenuation. No axillary or supraclavicular lymphadenopa thy. No mediastinal, hilar or retrocrural lymphadenopathy. The heart and pericardium are within kevin l limits. No evidence of pulmonary thrombolic disease. No aortic dissection or aneurysm. Aberrant melisa gin of the right subclavian artery. Marked hepatic steatosis. Cholecystectomy. Atrophic pancreas. The spleen and bilateral adrenal glands are normal. Symmetric renal enhancement. There is no focal renal mass. There is no hydronephrosis. Postsurgical changes of Claudio-en-Y gastric bypass. Multiple distended fluid-filled loops of small ravi l. Fluid and gas distends most of the colon. High density material presumed to be enteric contrast re aches the colon. Appendectomy There is no free fluid. There is no mesenteric or retroperitoneal adenopathy. 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 Right hepatic artery arises from the SMA. Urinary bladder is normal. Hysterectomy. No pelvic free fluid. There is no pelvic or inguinal adenopa thy. Degenerative changes of the spine. Grade 1 anterolisthesis at L4-5. Posterior instrumentation at L4-5 .. IMPRESSION: 1. No evidence of pulmonary thromboembolic disease. No aortic dissection or aneurysm. 2. Groundglass opacities in the right upper lobe with mid and lower lung consolidations and volume lo ss, likely infection and some areas of atelectasis. 3. Distention of large and small bowel with fluid and gas, probably adynamic ileus or nonspecific ent eritis. 4. 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 While this is often an incidental/asymptomatic finding, it can be seen in the setting of median arcuate ligament syndrome and clinical correlation is advised. Electronically signed by: Major Barcenas MD (04/17/2021 2:19 PM) [id number]
[2021-04-17 14:32] LABS: % BANDS 2 % (0-9); % LYMPHS 13 % (24-48); % MONOS 8 % (0-10); % SEGS 77 % (35-66); PLT ESTIMATE ADEQUATE (ADEQUATE)
[2021-04-17] MEDS ORDERED: DOXYCYCLINE HYCLATE 100 MG in IV DEXTROSE 5% 100 ML IV ONE (15:00)
[2021-04-17] MEDS ORDERED: DOXYCYCLINE HYCLATE 100 MG VIAL IV ONE (15:25)
[2021-04-17] MEDS ORDERED: IV DEXTROSE 5% 100 ML IV ONE (15:25)
[2021-04-17] MEDS ORDERED: cefTRIAXone SODIUM 1 GM VIAL ONE (15:25)
[2021-04-17] MEDS ORDERED: IV NORMAL SALINE 50ML 50 ML ONE (15:25)
[2021-04-17] MEDS ORDERED: IV RINGERS SOLUTION,LACTATED 1,000 ML IV ONE ×2 (15:45→17:45)
[2021-04-17 17:35] VITALS: BP 89/52
--- NOTE | 2021-04-17 23:11 | EKG ---
[address] [address] Test Date: 2021-04-17 Test Time: 13:58:44 Pat Name: ALEXIS KUMAR Department: Room: Gender: F Incident Response Manager: DANIA : 1980 Requested By: YONY CURRY Order Number: [id number] Reading MD: Floyd Isabel Measurements Intervals [place] Rate: 136 P: [place]: QRS: 33 QRSD: 84 T: 64 QT: 336 QTc: 509 Interpretive Statements SINUS TACHYCARDIA INCOMPLETE RIGHT BUNDLE BRANCH BLOCK Electronically Signed On 04-20-2021 12:11:42 PERIOPERATIVE ASSISTANT by Floyd Isabel
--- NOTE | 2021-04-17 23:13 | EKG ---
[facility] ED [facility] [place] [id number] Test Date: 2021-04-17 Test Time: 12:52:40 Pat Name: ALEXIS KUMAR Department: Room: Gender: F [employer] History Teacher: IVONE : 1980 Requested By: YONY CURRY Order Number: [id number] Reading MD: Floyd Isabel Measurements Intervals [place] Rate: 158 P: [place]: QRS: 51 QRSD: 82 T: 85 QT: 312 QTc: 511 Interpretive Statements SINUS TACHYCARDIA ST & T ABNORMALITY, CONSIDER HIGH LATERAL ISCHEMIA OR LEFT VENTRICULAR STRAIN Electronically Signed On 04-20-2021 12:12:55 BARREL LATHE OPERATOR by Floyd Isabel
== END 2021-04-17 17:57 | disposition short-term general hospital (02) ==
LOC: ER 12:29
DX: J18.9 Pneumonia, unspecified organism (principal); A41.9 Sepsis, unspecified organism; E86.1 Hypovolemia; Q79.60 Ehlers-Danlos syndrome, unspecified; K56.7 Ileus, unspecified; G93.41 Metabolic encephalopathy; R00.0 Tachycardia, unspecified; Z20.822 Contact with and (suspected) exposure to COVID-19; Z86.718 Personal history of other venous thrombosis and embolism; Z86.711 Personal history of pulmonary embolism
CPT/HCPCS: 36415; 71045; 71275; 74174; 74175; 80053; 83605; 83690; 83735; 83880; 84443; 84484; 85007; 85025; 85610; 85730; 86850; 86900; 86901; 87040; 87426; 93005; 96361; 96365; 99291; C9803; J0696; J3490; J7030; J7040; J7120; Q9967; U0003

== ENCOUNTER 2021-05-12 16:13 | Emergency (ER) | payer OTHER ==
[~2021-05-12] VITALS: Ht 160 cm; Wt 82.6 kg
[2021-05-12] MEDS ORDERED: DEXTROSE 50% 25 GM / 50ML DISP.SYRIN. IV ONE ×2 (16:19→17:30)
[2021-05-12 16:59] LABS: CALCIUM 8.2 mg/dL (8.5-10.1); GFR 60.8; POTASSIUM 5.1 mmol/L (3.5-5.1)
[2021-05-12 17:00] LABS: BASO # 0.2 x10^3/uL (0.0-0.2); BASO % 1 % (0-3); EOS % 0 % (0-3); HEMATOCRIT 40.2 % (36.0-47.0); HEMOGLOBIN 12.8 g/dL (12.0-15.5); LYMPH # 3.1 x10^3/uL (1.0-4.8); LYMPH % 22 % (24-48); MEAN CORPUSCULAR HEMOGLOBIN 33 pg (25-35); MEAN CORPUSCULAR HGB CONC 32 g/dL (31-37); MEAN CORPUSCULAR VOLUME 105 fL (79-100); MONO # 0.7 x10^3/uL (0.0-1.1); MONO % 5 % (0-9); NEUT # 10.2 x10^3uL (1.8-7.7); NEUT % 72 % (31-73); PLATELET COUNT 424 x10^3/uL (140-400); RED BLOOD COUNT 3.84 x10^6/uL (3.50-5.40); RED CELL DISTRIBUTION WIDTH 13.9 % (11.5-14.5); WHITE BLOOD COUNT 14.1 x10^3/uL (4.0-11.0)
[2021-05-12] MEDS ORDERED: IOHEXOL 300 MG/ML 75 ML VIAL. IV ONE (17:00)
--- NOTE | 2021-05-12 17:07 | PHYS DOC ---
Past History Past Medical History: DVT, Other Additional Past Medical Histor: pulmonary embolism neuropathy, psoriasis, Merrill-Danlos Past Surgical History: Appendectomy, Cholecystectomy, Gastric Bypass, Hysterectomy Additional Past Surgical Histo: spinal fusion Alcohol Use: Occasionally Drug Use: None General Adult EDM: Chief Complaint: ALTERED MENTAL STATUS HPI: HPI: Patient is a 41-year-old female that presents today with decreased LOC via [facility]. Per the report from EMS somewhat Gudino we can get from the patient was seen here on April 17, 2021 and diagnosed with sepsis pneumonia, patient was transferred to [facility] for treatment and continuation of care, according to the patient was released April 252021, and today came home and found patient unresponsive. Patient is unable to communicate with as she is very somnolent and lethargic does respond to painful stimuli, but unable to give us any history or review of systems. Did review patient's past charts and is concerned that the patient does have a history of pulmonary emboli in the past and has a history of Ehler-Danlos, but does not have any cardiac history. Patient also has a history of opioid dependency for chronic back pain, per her past medical records. Patient did have her Covid vaccines July 13, 2020, August 03, 2020 it was [employer] Review of Systems: Review of Systems: Unable to complete a review of systems patient is unresponsive and unable to participate in exam. Current Medications: Current Meds: No medications Tramadol 200 mg twice daily Zanaflex 4 mg 2 tablets every 8 hours as needed for back pain pErcocet 7.5 mg 1 tablet every 6 hours as needed for pain Levothyroxine 137 mcg daily Claritin 10 mg daily Multivitamin 1 tablet daily Elavil 100 mg at at bedtime Protonix 40 mg daily Clonazepam 0.1 mg as needed daily Current Medications Medications (Trade) Dose Ordered Sig/Ronni Start Time Stop Time Status Last Admin Dose Admin Dextrose (Dextrose 50%-Water Syringe) 25 gm STK-MED ONCE 05/12/21 16:19 05/12/21 16:19 DC Info (Do NOT chart on this entry -- for MONITORING) 1 each PRN DAILY PRN 05/12/21 17:15 05/14/21 17:14 Iohexol (Omnipaque 300 Mg/ml) 75 ml 1X ONCE 05/12/21 17:00 05/12/21 17:01 IN Allergies: Allergies: Allergies Coded Allergies Type Severity Reaction Last Updated Verified No Known Drug Allergies 05/16/17 No Physical Exam: PE: Constitutional: Toxic appearing female who is pale with increased work of breathing noted HENT: Normocephalic, atraumatic, bilateral external ears normal, oropharynx dry, no oral exudates, nose normal. [] Eyes: PERRLA, EOMI, conjunctiva normal, no discharge, orbital edema noted Neck: Normal range of motion, no tenderness, supple, no stridor. [] Cardiovascular:Heart rate regular rhythm, no murmur [] Lungs & Thorax: Bilateral breath sounds diminished breath sounds Abdomen: Abdomen large, bloated, firm to touch liver margins are noted, hypoactive bowel sounds Skin: Pale cool and dry, no erythema, purpura or rash noted on the feet with delayed cap refill noted [] Back: No tenderness, no CVA tenderness. [] Extremities: No tenderness, no cyanosis, no clubbing, ROM intact, 3+ pitting edema in all 4 extremities [] Neurologic: Patient is somnolent, does not respond to painful stimuli patient does move all 4 extremities but is not following commands [] Psychologic: Abnormal judgment patient somnolent lethargic Current Patient Data: Labs: Laboratory Tests Test 05/12/21 16:17 05/12/21 16:30 05/12/21 17:00 05/12/21 17:10 Glucose (Fingerstick) 62 mg/dL White Blood Count 14.1 x10^3/uL Red Blood Count 3.84 x10^6/uL Hemoglobin 12.8 g/dL Hematocrit 40.2 % Mean Corpuscular Volume 105 fL Mean Corpuscular Hemoglobin 33 pg Mean Corpuscular Hemoglobin Concent 32 g/dL Red Cell Distribution Width 13.9 % Platelet Count 424 x10^3/uL Neutrophils (%) (Auto) 72 % Lymphocytes (%) (Auto) 22 % Monocytes (%) (Auto) 5 % Eosinophils (%) (Auto) 0 % Basophils (%) (Auto) 1 % Neutrophils # (Auto) 10.2 x10^3uL Lymphocytes # (Auto) 3.1 x10^3/uL Monocytes # (Auto) 0.7 x10^3/uL Eosinophils # (Auto) 0.0 x10^3/uL Basophils # (Auto) 0.2 x10^3/uL Sodium Level 138 mmol/L Potassium Level 5.1 mmol/L Chloride Level 99 mmol/L Carbon Dioxide Level 29 mmol/L Anion Gap 10 Blood Urea Nitrogen 9 mg/dL Creatinine 1.0 mg/dL Estimated GFR (Cockcroft-Gault) 60.8 BUN/Creatinine Ratio 9 Glucose Level 63 mg/dL Lactic Acid Level 2.6 mmol/L Calcium Level 8.2 mg/dL Total Bilirubin 5.2 mg/dL Aspartate Amino Transf (AST/SGOT) 102 U/L Alanine Aminotransferase (ALT/SGPT) 58 U/L Alkaline Phosphatase 150 U/L Creatine Kinase 292 U/L Troponin I High Sensitivity 8 ng/L AG-Vct-E-Type Natriuretic Peptide 57 pg/mL Total Protein 6.6 g/dL Albumin 1.9 g/dL Albumin/Globulin Ratio 0.4 Urine Collection Type Clean catch Urine Color Claudia Urine Clarity Clear Urine pH 6.0 Urine Specific [place] >=1.030 Urine Protein Trace Urine Glucose (UA) 100 mg/dL Urine Ketones (Stick) 15 mg/dL Urine Blood Neg Urine Nitrite Pos Urine Bilirubin Large Urine Urobilinogen Dipstick >=8.0 mg/dL Urine Leukocyte Esterase Neg Urine RBC 1-2 /HPF Urine WBC 5-10 /HPF Urine Squamous Epithelial Cells Few /LPF Urine Bacteria Few /HPF Urine Yeast Present /HPF Urine Opiates Screen Pos Urine Methadone Screen Neg Urine Barbiturates Neg Urine Phencyclidine Screen Pos Urine Amphetamine/Methamphetamine Neg Urine Benzodiazepines Screen Neg Urine Cocaine Screen Neg Urine Cannabinoids Screen Neg Urine Ethyl Alcohol Neg Influenza Type A (Rapid) Negative Influenza Type B (Rapid) Negative SARS-CoV-2 Antigen (Rapid) Negative Test 05/12/21 17:37 05/12/21 17:48 Bedside Venous pH 7.46 Bedside Venous pCO2 40 mmHg Bedside Venous pO2 55 mmHg Venous Blood HCO3 29 mmol/L POC Venous O2 Saturation (Venkat) 90 % Bedside FiO2 0 Ammonia 100 mcmol/L Glucose (Fingerstick) 132 mg/dL Current Medications Medications (Trade) Dose Ordered Sig/Ronni Route PRN Reason Start Time Stop Time Status Last Admin Dose Admin Dextrose (Dextrose 50%-Water Syringe) 25 gm STK-MED ONCE IV 05/12/21 16:19 05/12/21 16:19 DC Iohexol (Omnipaque 300 Mg/ml) 75 ml 1X ONCE IV 05/12/21 17:00 05/12/21 17:01 DC Info (Do NOT chart on this entry -- for MONITORING) 1 each PRN DAILY PRN MC SEE COMMENTS 05/12/21 17:15 05/14/21 17:14 Sodium Chloride 1,000 ml @ 1,000 mls/hr 1X ONCE IV 05/12/21 17:15 05/12/21 18:14 DC 05/12/21 17:26 Furosemide (Lasix) 40 mg 1X ONCE IVP 05/12/21 17:15 05/12/21 17:16 DC Naloxone HCl (Narcan) 2 mg STK-MED ONCE .ROUTE 05/12/21 17:14 05/12/21 17:14 DC Naloxone HCl (Narcan) 2 mg 1X ONCE IV 05/12/21 17:15 05/12/21 17:21 DC 05/12/21 17:27 Dextrose (Dextrose 50%-Water Syringe) 25 gm 1X ONCE IV 05/12/21 17:30 05/12/21 17:32 DC 05/12/21 17:33 Laboratory Tests Test 05/12/21 16:17 Glucose (Fingerstick) 62 mg/dL (70-99) L Vital Signs: Vital Signs Date Time Temp Pulse Resp B/P (MAP) Pulse Ox O2 Delivery O2 Flow Rate FiO2 05/12/21 22:05 104 26 136/89 (105) 98 Nasal Cannula 2.0 05/12/21 21:24 114 28 127/92 (104) 100 Nasal Cannula 2.0 05/12/21 20:54 127 28 123/84 (97) 100 Nasal Cannula 2.0 05/12/21 20:24 131 28 125/43 (70) 100 Nasal Cannula 2.0 05/12/21 20:00 137 19 129/54 (79) 100 05/12/21 19:24 141 28 128/96 (107) 100 Nasal Cannula 2.0 05/12/21 18:55 136 28 118/65 (82) 98 Nasal Cannula 2.0 05/12/21 17:55 125 28 128/54 (78) 98 Nasal Cannula 2.0 05/12/21 17:24 109 28 120/80 (93) 100 Nasal Cannula 2.0 05/12/21 17:01 84 28 109/65 (80) 99 Nasal Cannula 2.0 05/12/21 16:45 112 28 123/78 (93) 99 Nasal Cannula 2.0 05/12/21 16:13 99.3 84 12 109/65 (80) 100 Nasal Cannula 2.0 Vital Signs Date Time Temp Pulse Resp B/P (MAP) Pulse Ox O2 Delivery O2 Flow Rate FiO2 05/12/21 20:00 137 19 129/54 (79) 100 EKG: EKG: EKG done at [address] Franco at 1710 no STEMI shows sinus tachycardia at a rate of 109 with a AK interval of 154 ms with a QTC of 511 ms [] Radiology/Procedures: Radiology/Procedures: REASON: decrease LOC PROCEDURE: CT CHEST ABDOMEN PELVIS WO Study: CT chest, abdomen and pelvis without contrast INDICATION: Decreased level of consciousness. COMPARISON: 04/17/2021 TECHNIQUE: Helical CT imaging performed of the chest, abdomen and pelvis performed without the use of intravenous contrast. Coronal and sagittal reformats were obtained. One or more of the following individualized dose reduction techniques were utilized for this examination: 1. Automated exposure control 2. Adjustment of the mA and/or kV according to patient size 3. Use of iterative reconstruction technique. FINDINGS: CT Chest: Motion degradation at the lower neck. Aberrant right subclavian artery. Prominence of the thyroid gland. No measurable nodule considering the absence of contrast. No aortic aneurysm. Mediastinal and hilar lymph nodes are within normal limits for size. No pericardial effusion. No axillary adenopathy. Infiltrates and atelectasis on the comparison have diminished. Faint persistence of mild groundglass infiltrates at the right upper lobe and mild residual bibasilar volume loss. Pleural effusions have resolved. A few millimetric pulmonary nodules such as within the right upper lobe were present previously and are unchanged. No central airway occlusion. No acute or aggressive osseous process. CT Abdomen/Pelvis: Diffuse hypoattenuation of the hepatic parenchyma also present on the prior. Hepatomegaly. Absent gallbladder. Partially atrophic pancreas. Unchanged size of the spleen. No adrenal gland mass. Motion degraded assessment of the kidneys but without appreciable change. No hydronephrosis. Uribe catheter balloon well-positioned within the bladder lumen. Bladder wall thickness is within normal limits. Absent uterus. No adnexal mass. Mild wall thickening of the sigmoid colon and rectum favored secondary to incomplete distention. As before, well-formed stool within the proximal colon as well as fecalization of enteric material within the ileum. The degree of ileal and proximal colonic distention is mildly less pronounced. Status post gastric bypass. Unchanged anastomoses. No pathologic dilatation of small bowel. Collapsed excluded portion of the stomach. No newly apparent lymphadenopathy. Mild presacral and body wall edema. No free fluid or pneumoperitoneum. Posterior instrumented fusion at L4-L5. Screw loosening/backing out on the left at L4 and L5. Redemonstrated anterolisthesis of L4 on L5 and endplate eburnation/sclerosis eccentric to the right at this level. No appreciable prevertebral inflammatory changes have developed. No solid fusion appreciated across the posterior elements. Similar appearance of the dorsal soft tissues at this location. IMPRESSION: CT Chest: 1. No acute abnormality identified throughout the chest. Airspace infiltrates and atelectasis on the 04/17/2021 comparison have decreased and pleural fluid present previously has resolved. CT Abdomen/Pelvis: 1. Status post gastric bypass. No complication is identified. No findings to indicate obstruction. Well-formed stool within the proximal colon and fecalization of enteric contents within the ileum was also present previously and is slightly decreased but still indicates a constipated state/slow transit. 2. Dorsal fusion construct at L4-L5. Screw loosening and backing out on the left at L4 and L5. Endplate sclerosis and cystic change eccentric to the right at this level on a background of anterolisthesis was present previously. No overt inflammatory changes of the surrounding soft tissues to indicate septic loosening. 3. Diffuse hypoattenuation of the hepatic parenchyma typical of hepatic steatosis. 4. Mild body wall and presacral edema could indicate a volume overload state. Electronically signed by: MODESTO SPRING MD (05/12/2021 5:56 PM) [facility] DICTATED AND SIGNED BY: MODESTO SPRING MD DATE: 05/12/21 1728 CC: BHUPENDRA FRANCO DO; COLLEEN LU APRN; DILAN CHRISTINE MD ~MTH0 0 REASON: decrease LOC PROCEDURE: CT HEAD WO CONTRAST STUDY: CT head without contrast INDICATION: Decreased level of consciousness. COMPARISON: None. TECHNIQUE: Axial CT imaging through the head without the use of intravenous contrast. Sagittal and coronal reformats were obtained. One or more of the following individualized dose reduction techniques were utilized for this examination: 1. Automated exposure control 2. Adjustment of the mA and/or kV according to patient size 3. Use of iterative reconstruction technique. FINDINGS: Motion degradation at the vertex. No acute intracranial hemorrhage. Celaya-white matter differentiation is maintained. No localized mass effect, midline shift or hydrocephalus. The visualized globes are unremarkable. Intact calvarium. Normally aerated mastoid air cells and partially imaged paranasal sinuses. IMPRESSION: No acute intracranial abnormality by CT. Electronically signed by: MODESTO SPRING MD (05/12/2021 5:28 PM) [facility] [] Heart Score: C/O Chest Pain: N/A Risk Factors: Risk Factors: DM, Current or recent (<one month) smoker, HTN, HLP, family history of CAD, obesity. Risk Scores: Score 0 - 3: 2.5% MACE over next 6 weeks - Discharge Home Score 4 - 6: 20.3% MACE over next 6 weeks - Admit for Clinical Observation Score 7 - 10: 72.7% MACE over next 6 weeks - Early Invasive Strategies Course & Med Decision Making: Course & Med Decision Making Pertinent Labs and Imaging studies reviewed. (See chart for details) 1729 spoke to patient's he states that they were released [facility] on April 25, 2021 with oxygen at 2 L and antibiotic therapy. Patient finished her antibiotic therapy a couple of days ago, but over the last 3 days he has noticed increase sleeping from the patient and not been acting like herself. states the patient has not been eating or drinking as well either over the last 3 days. states they were seen late last week by Dr. Christine in the office and that they had nothing new to add. did state that they made changes to the patient's levothyroxine while she was in the hospital but no other medication changes were done. 1909 did review radiological and laboratory results, patient is in need of a higher level of care and will look into transferring the patient to an outside facility. Have called [facility] and they are unable to accommodate her at this time due to being on diversion, did call [facility] and we are awaiting response from them. Patient was accepted by [facility], report was given to Dr. Rojas by Dr. Leavitt regarding the patient's condition. 2009 did speak to the regarding patient's condition and informed him that her liver is not working effectively and that we will never give her medications to help excrete the ammonia level that has built up in her bloodstream to help with her mental status, did inform him that I am unsure of why that is happening and that they will need to further investigate this at an inpatient level. Patient was also given some antibiotics due to the increase of white count, patient also had a urinary tract infection. Patient will be transferred to [facility] for further management of her medical conditions. Dragon Disclaimer: Dragon Disclaimer: This electronic medical record was generated, in whole or in part, using a voice recognition dictation system. Departure Departure: Impression: Primary Impression: Mental status alteration Qualified Codes: R41.82 - Altered mental status, unspecified Additional Impressions: Elevated liver enzymes UTI (urinary tract infection) Qualified Codes: N39.0 - Urinary tract infection, site not specified; R31.9 - Hematuria, unspecified Disposition: 02 SHORT TERM HOSPITAL Condition: GUARDED Referrals: DILAN CHRISTINE MD (PCP) COLLEEN LU APRN May 12, 2021 17:07
[2021-05-12 17:14] LABS: ALBUMIN 1.9 g/dL (3.4-5.0); ALBUMIN/GLOBULIN RATIO 0.4 (1.0-1.7); TOTAL BILIRUBIN 5.2 mg/dL (0.2-1.0); TOTAL PROTEIN 6.6 g/dL (6.4-8.2)
[2021-05-12] MEDS ORDERED: NALOXONE 2 MG/2 ML DISP.SYRIN. ONE (17:14)
[2021-05-12] MEDS ORDERED: FUROSEMIDE 40 MG/4 ML VIAL IVP ONE (17:15)
[2021-05-12] MEDS ORDERED: CONTRAST GIVEN. MC PRN (17:15)
[2021-05-12] MEDS ORDERED: NALOXONE 2 MG/2 ML DISP.SYRIN. IV ONE (17:15)
[2021-05-12] MEDS ORDERED: IV NORMAL SALINE 1,000ML 1,000 ML IV ONE ×2 (17:15→20:00)
--- NOTE | 2021-05-12 17:31 | RAD ---
STUDY: CT head without contrast INDICATION: Decreased level of consciousness. COMPARISON: None. TECHNIQUE: Axial CT imaging through the head without the use of intravenous contrast. Sagittal and co angelina reformats were obtained. One or more of the following individualized dose reduction techniques were utilized for this examinat ion: 1. Automated exposure control 2. Adjustment of the mA and/or kV according to patient size 3. Use of iterative reconstruction technique. FINDINGS: Motion degradation at the vertex. No acute intracranial hemorrhage. Celaya-white matter differentiation is maintained. No localized mass effect, midline shift or hydrocephalus. The visualized globes are unremarkable. Intact calvarium. Normally aerated mastoid air cells and part ially imaged paranasal sinuses. IMPRESSION: No acute intracranial abnormality by CT. Electronically signed by: MODESTO SPRING MD (05/12/2021 5:28 PM) [facility]
[2021-05-12 17:37] LABS: BARBITURATES NEG (NEG); BENZODIAZEPINES NEG (NEG); CANNABINOIDS NEG (NEG); COCAINE NEG (NEG); METHADONE NEG (NEG); OPIATES POS (NEG); PHENCYCLIDINE POS (NEG)
[2021-05-12 17:46] LABS: AMPHETAMINE/METHAMPHETAMINE NEG (NEG)
[2021-05-12 17:53] LABS: INFLUENZA A PATIENT NEGATIVE (NEGATIVE); INFLUENZA B PATIENT NEGATIVE (NEGATIVE)
--- NOTE | 2021-05-12 17:56 | EKG ---
[address] [address] Test Date: 2021-05-12 Test Time: 17:07:19 Pat Name: ALEXIS KUMAR Department: Room: Gender: F Watchguard: IVONE : 1980 Requested By: COLLEEN LU Order Number: [id number] Reading MD: Floyd Isabel Measurements Intervals [place] Rate: 109 P: 12 TN: 154 QRS: 47 QRSD: 88 T: 56 QT: 378 QTc: 511 Interpretive Statements SINUS TACHYCARDIA LEFT ATRIAL ABNORMALITY LOW LIMB LEAD VOLTAGE ST & T ABNORMALITY, CONSIDER ANTERIOR ISCHEMIA OR LEFT VENTRICULAR STRAIN ABNORMAL ECG Electronically Signed On 05-14-2021 19:38:31 [employer] WORK[employer] by Floyd Isabel
--- NOTE | 2021-05-12 17:58 | RAD ---
Study: CT chest, abdomen and pelvis without contrast INDICATION: Decreased level of consciousness. COMPARISON: 04/17/2021 TECHNIQUE: Helical CT imaging performed of the chest, abdomen and pelvis performed without the use of intravenous contrast. Coronal and sagittal reformats were obtained. One or more of the following individualized dose reduction techniques were utilized for this examinat ion: 1. Automated exposure control 2. Adjustment of the mA and/or kV according to patient size 3. Use of iterative reconstruction technique. FINDINGS: CT Chest: Motion degradation at the lower neck. Aberrant right subclavian artery. Prominence of the thyroid gla nd. No measurable nodule considering the absence of contrast. No aortic aneurysm. Mediastinal and hil ar lymph nodes are within normal limits for size. No pericardial effusion. No axillary adenopathy. Infiltrates and atelectasis on the comparison have diminished. Faint persistence of mild groundglass infiltrates at the right upper lobe and mild residual bibasilar volume loss. Pleural effusions have r esolved. A few millimetric pulmonary nodules such as within the right upper lobe were present previou sly and are unchanged. No central airway occlusion. No acute or aggressive osseous process. CT Abdomen/Pelvis: Diffuse hypoattenuation of the hepatic parenchyma also present on the prior. Hepatomegaly. Absent gal lbladder. Partially atrophic pancreas. Unchanged size of the spleen. No adrenal gland mass. Motion de graded assessment of the kidneys but without appreciable change. No hydronephrosis. Uribe catheter ba lloon well-positioned within the bladder lumen. Bladder wall thickness is within normal limits. Absen t uterus. No adnexal mass. Mild wall thickening of the sigmoid colon and rectum favored secondary to incomplete distention. As b efore, well-formed stool within the proximal colon as well as fecalization of enteric material within the ileum. The degree of ileal and proximal colonic distention is mildly less pronounced. Status pos t gastric bypass. Unchanged anastomoses. No pathologic dilatation of small bowel. Collapsed excluded portion of the stomach. No newly apparent lymphadenopathy. Mild presacral and body wall edema. No free fluid or pneumoperiton eum. Posterior instrumented fusion at L4-L5. Screw loosening/backing out on the left at L4 and L5. Re demonstrated anterolisthesis of L4 on L5 and endplate eburnation/sclerosis eccentric to the right at this level. No appreciable prevertebral inflammatory changes have developed. No solid fusion apprecia gonzalo across the posterior elements. Similar appearance of the dorsal soft tissues at this location. IMPRESSION: CT Chest: 1. No acute abnormality identified throughout the chest. Airspace infiltrates and atelectasis on the 04/17/2021 comparison have decreased and pleural fluid present previously has resolved. CT Abdomen/Pelvis: 1. Status post gastric bypass. No complication is identified. No findings to indicate obstruction. W ell-formed stool within the proximal colon and fecalization of enteric contents within the ileum was also present previously and is slightly decreased but still indicates a constipated state/slow transi t. 2. Dorsal fusion construct at L4-L5. Screw loosening and backing out on the left at L4 and L5. Endpl ate sclerosis and cystic change eccentric to the right at this level on a background of anterolisthes is was present previously. No overt inflammatory changes of the surrounding soft tissues to indicate septic loosening. 3. Diffuse hypoattenuation of the hepatic parenchyma typical of hepatic steatosis. 4. Mild body wall and presacral edema could indicate a volume overload state. Electronically signed by: MODESTO SPRING MD (05/12/2021 5:56 PM) [facility]
[2021-05-12 18:06] LABS: CLARITY,URINE CLEAR; COLOR,URINE AMBER; GLUCOSE,URINE 100 mg/dL (NEG)
[2021-05-12 18:07] LABS: BACTERIA,URINE FEW /HPF (0-FEW); BILIRUBIN,URINE LARGE (NEG); NITRITE,URINE POS (NEG); SQUAMOUS EPITHELIAL CELL,UR FEW /LPF; UROBILINOGEN,URINE >=8.0 mg/dL (0.2 mg/dL)
[2021-05-12 18:08] LABS: YEAST,URINE PRESENT /HPF
[2021-05-12] MEDS ORDERED: IV NORMAL SALINE 50ML 50 ML ONE (19:44)
[2021-05-12] MEDS ORDERED: cefTRIAXone SODIUM 1 GM VIAL ONE (19:45)
[2021-05-12] MEDS ORDERED: LACTULOSE 20 GM/30 ML SOLUTION. PO ONE (20:15)
[2021-05-12 20:27] LABS: ACETAMIN < 2.0 mcg/mL (10-30)
[2021-05-12] MEDS ORDERED: ACETAMINOPHEN 650 MG SUPP.RECT. PR ONE (20:45)
[2021-05-12] MEDS ORDERED: MORPHINE SULFATE 2 MG/ML DISP.SYRIN. IV ONE (20:45)
--- NOTE | 2021-05-12 21:37 | RAD ---
XR CHEST 1V History: NG tube placement Comparison: 04/17/2021 Technique: Portable AP chest radiograph. FINDINGS/ IMPRESSION: Tubes and lines: Gastric tube proximal side-port projects approximately 3 cm above the diaphragm, rec ommend advancement to ensure within the stomach. Catheter in the left neck may represent external jug ular access. Lungs and pleura: Lungs are adequately and symmetrically inflated. No airspace opacity, pleural effus ion or pneumothorax. Cardiac silhouette and pulmonary vasculature: Unremarkable. Osseous structures and other: No acute findings. Electronically signed by: Nabeel Dykes MD (05/12/2021 9:34 PM) [facility]
[2021-05-12 22:05] VITALS: BP 136/89
== END 2021-05-12 22:12 | disposition short-term general hospital (02) ==
LOC: ER 16:13
DX: N39.0 Urinary tract infection, site not specified (principal); R31.9 Hematuria, unspecified; R74.8 Abnormal levels of other serum enzymes; R41.82 Altered mental status, unspecified; Z20.822 Contact with and (suspected) exposure to COVID-19; Z86.718 Personal history of other venous thrombosis and embolism; Z86.711 Personal history of pulmonary embolism
CPT/HCPCS: 36415; 70450; 71045; 71250; 74176; 80053; 80307; 80329; 81001; 82140; 82550; 82803; 82947; 83605; 83880; 84484; 85025; 87040; 87086; 87428; 93005; 96361; 96374; 96375; 99285; C9803; J0696; J2310; J7030; U0003; G0480

== ENCOUNTER 2021-06-16 09:52 | Emergency (ER) | payer OTHER ==
[~2021-06-16] VITALS: Ht 160 cm; Wt 82.6 kg
[2021-06-16] MEDS ORDERED: IV RINGERS SOLUTION,LACTATED 1,000 ML IV ONE ×2 (10:30→16:15)
--- NOTE | 2021-06-16 10:40 | RAD ---
AP chest. HISTORY: Altered mental status AP view was taken of the chest. Lungs are free of infiltrates. Heart is normal in size. There is no p leural effusion. IMPRESSION: 1. No acute chest disease. Electronically signed by: Chava Ernst MD (06/16/2021 10:38 AM) [facility]
--- NOTE | 2021-06-16 10:51 | PHYS DOC ---
Past History Past Medical History: DVT, Other Additional Past Medical Histor: pulmonary embolism, neuropathy, psoriasis, Merrill-Danlos Past Surgical History: Appendectomy, Cholecystectomy, Gastric Bypass, Hysterectomy Additional Past Surgical Histo: spinal fusion Alcohol Use: None Drug Use: None General Adult EDM: Chief Complaint: ALTERED MENTAL STATUS HPI: HPI: Patient is a 41 year old female with extensive past medical history, recently admitted to [facility] for hepatic encephalopathy, who presents with altered mental status since this morning. Patient has been is at bedside and aids in providing history. states that since patient's discharge from [facility] last month, patient has had a somewhat steady decline in overall health and mentation. He states that the past 4-5 days have been on a "uptick," and that she has been doing well. Yesterday patient was conversational and seemed in good condition. Today, patient does not respond to questions. is concerned at her change in mentation. He reports medication compliance and that she has only had 3 doses of her narcotic pain medication since May 26. Review of Systems: Review of Systems: Unable to obtain secondary to altered mental status. Current Medications: Current Meds: Current Medications Medications (Trade) Dose Ordered Sig/Ronni Route PRN Reason Start Time Stop Time Status Last Admin Dose Admin Lactated Ringer's 1,000 ml @ 1,000 mls/hr 1X ONCE IV 06/16/21 10:30 06/16/21 11:29 DC 06/16/21 11:02 Ceftriaxone Sodium 1 gm/ Sodium Chloride 50 ml @ 100 mls/hr 1X ONCE IV 06/16/21 15:15 06/16/21 15:44 DC 06/16/21 15:24 Lactated Ringer's 1,000 ml @ 1,000 mls/hr 1X ONCE IV 06/16/21 16:15 06/16/21 17:14 DC 06/16/21 16:11 Allergies: Allergies: Allergies Coded Allergies Type Severity Reaction Last Updated Verified No Known Drug Allergies 05/16/17 No Physical Exam: PE: Constitutional: Well developed, well nourished, patient is chronically ill- appearing and appears markedly older than stated age. HENT: Normocephalic, atraumatic, bilateral external ears normal, nose normal. Eyes: PERRL, EOMI, conjunctiva normal, no discharge. Neck: Normal range of motion, no stridor. Cardiovascular: Heart regular rate and rhythm, no obvious murmur. Lungs & Thorax: Equal thoracic expansion, no increased work of breathing appreciated, bilateral breath sounds clear to auscultation. Abdomen: Bowel sounds normal, soft, no tenderness, no masses, no pulsatile masses. Skin: Diffuse rash noted on upper and lower extremities consistent with history of psoriasis, cellulitic rash noted on bilateral ankles. Moist, erythematous rash with some blistering consistent with tinea appreciated in intertriginous folds beneath breasts and in the groin extending to the low back. Extremities: No tenderness, no cyanosis, no clubbing, ROM intact. Neurologic: Patient is nonverbal but alert, no focal deficits noted. Current Patient Data: Labs: Laboratory Tests Test 06/16/21 10:18 06/16/21 10:43 06/16/21 12:28 Lactic Acid Level 0.5 mmol/L (0.4-2.0) White Blood Count 7.3 x10^3/uL (4.0-11.0) Red Blood Count 3.44 x10^6/uL (3.50-5.40) Hemoglobin 11.6 g/dL (12.0-15.5) Hematocrit 36.3 % (36.0-47.0) Mean Corpuscular Volume 106 fL (79-100) Mean Corpuscular Hemoglobin 34 pg (25-35) Mean Corpuscular Hemoglobin Concent 32 g/dL (31-37) Red Cell Distribution Width 15.7 % (11.5-14.5) Platelet Count 190 x10^3/uL (140-400) Neutrophils (%) (Auto) 65 % (31-73) Lymphocytes (%) (Auto) 28 % (24-48) Monocytes (%) (Auto) 5 % (0-9) Eosinophils (%) (Auto) 2 % (0-3) Basophils (%) (Auto) 1 % (0-3) Neutrophils # (Auto) 4.7 x10^3uL (1.8-7.7) Lymphocytes # (Auto) 2.1 x10^3/uL (1.0-4.8) Monocytes # (Auto) 0.4 x10^3/uL (0.0-1.1) Eosinophils # (Auto) 0.1 x10^3/uL (0.0-0.7) Basophils # (Auto) 0.1 x10^3/uL (0.0-0.2) Prothrombin Time 16.9 SEC (9.4-11.4) Prothromb Time International Ratio 1.6 (0.9-1.1) Activated Partial Thromboplast Time 28 SEC (23-33) Sodium Level 142 mmol/L (136-145) Potassium Level 4.3 mmol/L (3.5-5.1) Chloride Level 107 mmol/L (98-107) Carbon Dioxide Level 28 mmol/L (21-32) Anion Gap 7 (6-14) Blood Urea Nitrogen 10 mg/dL (7-20) Creatinine 1.0 mg/dL (0.6-1.0) Estimated GFR (Cockcroft-Gault) 60.8 BUN/Creatinine Ratio 10 (6-20) Glucose Level 67 mg/dL (70-99) Calcium Level 8.0 mg/dL (8.5-10.1) Total Bilirubin 3.6 mg/dL (0.2-1.0) Aspartate Amino Transf (AST/SGOT) 64 U/L (15-37) Alanine Aminotransferase (ALT/SGPT) 85 U/L (14-59) Alkaline Phosphatase 111 U/L (46-116) Ammonia 124 mcmol/L (11-34) Troponin I High Sensitivity 6 ng/L (4-50) Total Protein 5.0 g/dL (6.4-8.2) Albumin 1.5 g/dL (3.4-5.0) Albumin/Globulin Ratio 0.4 (1.0-1.7) Lipase < 10 U/L (73-393) SARS-CoV-2 Antigen (Rapid) Negative (NEGATIVE) Urine Collection Type U cath Urine Color Yellow Urine Clarity Cloudy Urine pH 6.5 Urine Specific [place] 1.025 Urine Protein Neg (NEG-TRACE) Urine Glucose (UA) Neg mg/dL (NEG) Urine Ketones (Stick) Trace mg/dL (NEG) Urine Blood Trace (NEG) Urine Nitrite Pos (NEG) Urine Bilirubin Mod (NEG) Urine Urobilinogen Dipstick 2.0 mg/dL (0.2 mg/dL) Urine Leukocyte Esterase Mod (NEG) Urine RBC Occ /HPF (0-2) Urine WBC >40 /HPF (0-4) Urine Squamous Epithelial Cells Occ /LPF Urine Bacteria Many /HPF (0-FEW) Urine Opiates Screen Neg (NEG) Urine Methadone Screen Neg (NEG) Urine Barbiturates Neg (NEG) Urine Phencyclidine Screen Neg (NEG) Urine Amphetamine/Methamphetamine Neg (NEG) Urine Benzodiazepines Screen Neg (NEG) Urine Cocaine Screen Neg (NEG) Urine Cannabinoids Screen Neg (NEG) Urine Ethyl Alcohol Neg (NEG) Vital Signs: VS - Last 72 Hours, by Label Date Time Temp Pulse Resp B/P (MAP) Pulse Ox O2 Delivery O2 Flow Rate FiO2 06/16/21 16:40 98 16 126/79 (95) 97 06/16/21 16:34 98 16 129/93 (105) 06/16/21 16:30 97 16 79/49 (59) 06/16/21 15:50 98 16 99/59 (72) 06/16/21 15:25 103 16 80/51 (61) 06/16/21 14:30 95 16 101/84 (90) 06/16/21 13:00 84 16 108/63 (78) 96 06/16/21 12:25 86 18 101/80 (87) 95 06/16/21 11:30 88 16 92/67 (75) 96 06/16/21 11:02 97.7 94 16 111/58 (75) 97 Room Air 06/16/21 11:00 92 16 115/75 (88) 94 06/16/21 10:30 94 16 111/58 (75) 92 06/16/21 10:02 87 16 101/57 (72) 94 EKG: EKG: EKG Interpreted by Dr. Leavitt [id number]: Regular rate and rhythm 91 bpm with no ectopic beats. QT 384 ms/QTc 480 ms. No STEMI. Radiology/Procedures: Radiology/Procedures: PROCEDURE: CHEST AP ONLY AP chest. HISTORY: Altered mental status AP view was taken of the chest. Lungs are free of infiltrates. Heart is normal in size. There is no pleural effusion. IMPRESSION: 1. No acute chest disease. Electronically signed by: Chava Ernst MD (06/16/2021 10:38 AM) [facility] Heart Score: C/O Chest Pain: No Course & Med Decision Making: Course & Med Decision Making Pertinent Labs and Imaging studies reviewed. (See chart for details) Work-up today will include labs (including ammonia), chest x-ray, urinalysis, EKG. Ammonia is elevated at 124, which is higher than previous transfer to [facility]. Dr. Maria, hospitalist at [facility], gladly accepts patient for transfer for higher level of care. He did request we add coagulation studies prior to transfer. Covid swabs also obtained. Urinalysis shows evidence of UTI. Rocephin was initiated, hospitalist at [facility] aware. Additionally, patient's blood sugar found to be 65. Patient was provided with p.o. intake of grape juice. Patient did have brief episode of hypotension here in the department. Patient does not appear to be fluid overloaded, without evidence of pitting edema or anasarca, so another liter of fluid was provided for blood pressure support. Pressures were in the 1-teens/60s afterward. understands and is agreeable to plan of care. Patient is hemodynamically stable at time of transfer. Dragon Disclaimer: Dragon Disclaimer: This chart was dictated in whole or in part using Voice Recognition software in a busy, high-work load, and often noisy Emergency Department environment. It may contain unintended and wholly unrecognized errors or omissions. Departure Departure: Impression: Primary Impression: Hepatic encephalopathy Additional Impressions: Tinea cruris Tinea corporis UTI (urinary tract infection) Qualified Codes: N30.00 - Acute cystitis without hematuria Disposition: 02 SHORT TERM HOSPITAL Condition: GUARDED Referrals: DILAN CAMP MD (PCP) AUGUSTO ZHU Jun 16, 2021 10:51
[2021-06-16 11:20] LABS: BASO # 0.1 x10^3/uL (0.0-0.2); BASO % 1 % (0-3); EOS # 0.1 x10^3/uL (0.0-0.7); EOS % 2 % (0-3); HEMATOCRIT 36.3 % (36.0-47.0); HEMOGLOBIN 11.6 g/dL (12.0-15.5); LYMPH # 2.1 x10^3/uL (1.0-4.8); LYMPH % 28 % (24-48); MEAN CORPUSCULAR HEMOGLOBIN 34 pg (25-35); MEAN CORPUSCULAR HGB CONC 32 g/dL (31-37); MEAN CORPUSCULAR VOLUME 106 fL (79-100); MONO # 0.4 x10^3/uL (0.0-1.1); MONO % 5 % (0-9); NEUT # 4.7 x10^3uL (1.8-7.7); NEUT % 65 % (31-73); PLATELET COUNT 190 x10^3/uL (140-400); RED BLOOD COUNT 3.44 x10^6/uL (3.50-5.40); RED CELL DISTRIBUTION WIDTH 15.7 % (11.5-14.5); WHITE BLOOD COUNT 7.3 x10^3/uL (4.0-11.0)
[2021-06-16 11:23] LABS: ANION GAP 7 (6-14); BLOOD UREA NITROGEN 10 mg/dL (7-20); BUN/CREATININE RATIO 10 (6-20); CARBON DIOXIDE 28 mmol/L (21-32); CHLORIDE 107 mmol/L (98-107); GFR 60.8; GLUCOSE 67 mg/dL (70-99); POTASSIUM 4.3 mmol/L (3.5-5.1); SODIUM 142 mmol/L (136-145)
[2021-06-16 11:29] LABS: ALBUMIN 1.5 g/dL (3.4-5.0); ALBUMIN/GLOBULIN RATIO 0.4 (1.0-1.7); ALK PHOS 111 U/L (46-116); ALT (SGPT) 85 U/L (14-59); AST (SGOT) 64 U/L (15-37); TOTAL BILIRUBIN 3.6 mg/dL (0.2-1.0)
[2021-06-16 11:30] LABS: LIPASE < 10 U/L (73-393)
[2021-06-16 12:50] LABS: CLARITY,URINE CLOUDY; COLOR,URINE YELLOW; GLUCOSE,URINE NEG (NEG)
[2021-06-16 12:51] LABS: BACTERIA,URINE MANY /HPF (0-FEW); NITRITE,URINE POS (NEG); RBC,URINE OCC /HPF (0-2); SQUAMOUS EPITHELIAL CELL,UR OCC /LPF; WBC,URINE >40 /HPF (0-4)
[2021-06-16 12:54] LABS: BARBITURATES NEG (NEG); BENZODIAZEPINES NEG (NEG); CANNABINOIDS NEG (NEG); COCAINE NEG (NEG); METHADONE NEG (NEG); OPIATES NEG (NEG); PHENCYCLIDINE NEG (NEG)
[2021-06-16 13:04] LABS: AMPHETAMINE/METHAMPHETAMINE NEG (NEG)
[2021-06-16] MEDS ORDERED: cefTRIAXone SODIUM 1 GM VIAL ONE (15:13)
[2021-06-16] MEDS ORDERED: IV NORMAL SALINE 50ML 50 ML ONE (15:13)
[2021-06-16] MEDS ORDERED: DEXTROSE ORAL GEL 15 GM TUBE. PO ONE (15:15)
[2021-06-16 16:40] VITALS: BP 126/79
--- NOTE | 2021-06-16 20:42 | EKG ---
[address] [address] Test Date: 2021-06-16 Test Time: 10:10:40 Pat Name: ALEXIS KUMAR Department: Room: Gender: F Inspector Poising: BEE : 1980 Requested By: AUGUSTO ZHU Order Number: [id number] Reading MD: Josué Pulliam MD Measurements Intervals [place] Rate: 91 P: 41 PA: 180 QRS: 52 QRSD: 84 T: 47 QT: 384 QTc: 480 Interpretive Statements SINUS RHYTHM NON-SPECIFIC ST/T CHANGES CONSIDER SEPTAL INFARCT PATTERN Electronically Signed On 06-17-2021 11:00:42 PHOTOGRAPH PRINTER by Josué Pulliam MD
== END 2021-06-16 17:29 | disposition short-term general hospital (02) ==
LOC: ER 09:52
DX: K72.90 Hepatic failure, unspecified without coma (principal); N30.00 Acute cystitis without hematuria; B35.4 Tinea corporis; B35.6 Tinea cruris; Z20.822 Contact with and (suspected) exposure to COVID-19; Z86.718 Personal history of other venous thrombosis and embolism; Z86.711 Personal history of pulmonary embolism
CPT/HCPCS: 36415; 71045; 80053; 80307; 81001; 82140; 82947; 83605; 83690; 84484; 85025; 85610; 85730; 87040; 87077; 87086; 87186; 87426; 93005; 96361; 96365; 99285; C9803; J0696; J7120; U0003